=== PATIENT | male | born 1985 | race Caucasian/White ===

== ENCOUNTER 2020-08-13 14:45 | Emergency (ER) | payer SELFPAY ==
[~2020-08-13] VITALS: Ht 172.7 cm; Wt 106.6 kg
[2020-08-13 14:59] VITALS: Ht 172.7 cm; Wt 106.6 kg
[2020-08-13 16:57] LABS: BASOPHIL % 0.7 % (0-2); PLATELET COUNT 232 x10^3mcL (130-400)
[2020-08-13 17:05] LABS: CALCIUM 9.2 mg/dL (8.5-10.1); CARBON DIOXIDE 30.7 mmol/L (21-32); CHLORIDE SERUM 101 mmol/L (98-107); CREATININE SERUM 1.1 mg/dL (0.7-1.3); GFR1 > 60 mL/min; GLUCOSE SERUM 139 mg/dL (74-106); POTASSIUM SERUM 3.7 mmol/L (3.5-5.1); SODIUM SERUM 137 mmol/L (136-145)
[2020-08-13 17:10] LABS: ALKALINE PHOSPHATASE 88 U/L (46-116); ALT/SGPT 61 U/L (16-63); AST/SGOT 31 U/L (15-37); BILIRUBIN TOTAL 0.64 mg/dL (0.20-1.00)
[2020-08-13 18:58] VITALS: BP 151/102
== END 2020-08-13 18:59 | disposition home or self-care (01) ==
LOC: ED 14:45
PROVIDERS: Emergency Medicine
DX: R51.9 Headache, unspecified (principal); R42 Dizziness and giddiness; J45.909 Unspecified asthma, uncomplicated
CPT/HCPCS: Q9967